=== PATIENT | male | born 1985 | race Caucasian/White ===

== ENCOUNTER 2021-05-27 08:16 | Outpatient (CLI) | payer BC | END 2021-05-27 08:17 | disposition home or self-care (01) | LOC: CSHWCC 08:16 | PROVIDERS: ATTEND Nurse Practitioner Family | DX: T81.89XA Other complications of procedures, not elsewhere classified, initial encounter (principal); K57.20 Diverticulitis of large intestine with perforation and abscess without bleeding; K94.09 Other complications of colostomy; Z93.3 Colostomy status | CPT/HCPCS: 99212; G0463 ==